=== PATIENT | male | born 1970 | race Hispanic/Latino ===

== ENCOUNTER → 2024-02-25 15:22 | Outpatient (REF) | payer MEDICARE, SELFPAY | LOC: RAD 15:22 | PROVIDERS: ATTENDING PHYSICIAN Nurse Practitioner Family | DX: R07.81 Pleurodynia (principal) | CPT/HCPCS: 71046; 71110 ==

== ENCOUNTER → 2025-01-28 11:59 | Outpatient (REF) | payer OTHER, MEDICARE, SELFPAY | LOC: RAD 11:59 | PROVIDERS: ATTENDING PHYSICIAN Nurse Practitioner Family | DX: M54.50 Low back pain, unspecified (principal); M25.551 Pain in right hip; R11.0 Nausea; R63.4 Abnormal weight loss; E11.40 Type 2 diabetes mellitus with diabetic neuropathy, unspecified | CPT/HCPCS: 72110; 73502 ==